=== PATIENT | female | born 1980 | race African-American/Black ===

== ENCOUNTER 2023-07-06 18:20 | Emergency (ER) | payer OTHER ==
[2023-07-06 18:29] VITALS: BP 128/85; PULSE 88; RESP 18; TEMP 98.2; BMI 26.6
[2023-07-06] MEDS ORDERED: IBUPROFEN 400 MG TABLET (FP) PO ONE (19:39)
[2023-07-06] MEDS ORDERED: ACETAMINOPHEN 500 MG TABLET (FP) ONE (19:39)
[2023-07-06] MEDS: IBUPROFEN 400 MG TABLET (FP) PO ONE (20:09)
[2023-07-06] MEDS: ACETAMINOPHEN 500 MG TABLET (FP) PO ONE (20:11)
[2023-07-06] MEDS ORDERED: SULFAMETHOXAZOLE/TRIMETHOPRIM 800MG/160MG D.S. TABLET ONE (20:58)
[2023-07-06] MEDS: SULFAMETHOXAZOLE/TRIMETHOPRIM 800MG/160MG D.S. TABLET PO ONE (20:59)
== END 2023-07-06 21:10 | disposition home or self-care (01) ==
LOC: JER 18:20
DX: N61.0 Mastitis without abscess (principal)
CPT/HCPCS: 76642-TC-LT; 99284-25